=== PATIENT | male | born 1950 | race Caucasian/White ===

== ENCOUNTER 2018-09-26 06:06 | Emergency (ER) | payer MEDICARE, OTHER ==
[~2018-09-26] VITALS: Ht 180.3 cm; Wt 86.7 kg
[2018-09-26] MEDS ORDERED: LORazepam 2 mg/ml vial IV ONE (06:20)
[2018-09-26] MEDS ORDERED: normal saline 1000ml 1,000 ML IV ONE (06:20)
[2018-09-26] MEDS ORDERED: magnesium 2GM in 50ml NS 50 ML IV ONE (06:20)
== END 2018-09-26 06:20 | disposition left against medical advice (07) ==
LOC: ER 06:06
DX: R06.02 Shortness of breath (principal); Z53.21 Procedure and treatment not carried out due to patient leaving prior to being seen by health care provider
CPT/HCPCS: 93005

== ENCOUNTER 2018-10-31 09:53 | Inpatient (IN) | payer MEDICARE, OTHER | END 2018-11-04 15:25 | disposition home or self-care (01) | LOC: ER 09:53 → ED HOLD 13:02 → MED 3N 16:20 | DX: I50.23 Acute on chronic systolic (congestive) heart failure (principal); J96.00 Acute respiratory failure, unspecified whether with hypoxia or hypercapnia; I21.A1 Myocardial infarction type 2; J98.11 Atelectasis; R18.8 Other ascites ==

== ENCOUNTER 2019-06-04 08:45 | Inpatient (IN) | payer MEDICARE, OTHER ==
[~2019-06-04] VITALS: Ht 180.3 cm; Wt 89.1 kg
[~2019-06-04 08:45] MED LIST: ASPI-1265 PO; ATOR10TA PO; CARV-50 PO; DIGO125T5 PO; FOLI1TAB16 PO; FURO-150 PO; LISI10TA4 PO; MULT-1179 PO; SPIR50TA5 PO; thiamine tablet PO
[2019-06-04 09:45] LABS: BASOPHILS % (AUTO) 0.4 % (0-1); EOSINOPHILS # (AUTO) 0.1 X10'3 (0-0.9); EOSINOPHILS % (AUTO) 1.3 % (0-6); HEMATOCRIT 41.7 % (42.0-52.0); HEMOGLOBIN 13.7 g/dl (14.0-17.9); LYMPHOCYTES # (AUTO) 1.9 X10'3 (1.1-4.8); LYMPHOCYTES % (AUTO) 19.1 % (21-51); MEAN CORPUSCULAR HEMOGLOBIN 29.9 PG (27.0-31.0); MEAN CORPUSCULAR VOLUME 90.6 FL (78-98); MEAN PLATELET VOLUME 8.5 FL (7.4-10.4); MONOCYTES # (AUTO) 0.9 X10'3 (0-0.9); MONOCYTES % (AUTO) 8.9 % (2-12); NEUTROPHILS # (AUTO) 6.9 X10'3 (1.8-7.7); NEUTROPHILS % (AUTO) 70.3 % (42-75); PLATELET COUNT 178 X10'3 (140-440); RED CELL DISTRIBUTION WIDTH 14.4 % (11.5-14.5); WHITE BLOOD COUNT 9.9 X10'3 (4.5-11.0)
[2019-06-04 09:51] LABS: PARTIAL THROMBOPLASTIN TIME 27 SECONDS (22-32)
[2019-06-04 09:53] LABS: ALANINE AMINOTRANSFERASE 41 U/L (12-78); ALBUMIN 3.1 G/DL (3.4-5.0); ALBUMIN/GLOBULIN RATIO 0.8 (1.1-1.5); ALKALINE PHOSPHATASE 67 IU/L (46-116); ANION GAP 7 (8-16); ASPARTATE AMINO TRANSFERASE 25 U/L (10-37); BILIRUBIN,TOTAL 0.5 MG/DL (0.1-1.0); BLOOD UREA NITROGEN 17 MG/DL (7-18); BUN/CREATININE RATIO 16.3 (5.4-32.0); CALCIUM 8.8 MG/DL (8.5-10.1); CHLORIDE 105 MMOL/L (99-107); CREATININE 1.04 MG/DL (0.60-1.10); GLUCOSE 115 MG/DL (70-104); POTASSIUM 4.4 MMOL/L (3.5-5.1); SODIUM 141 MMOL/L (135-145); TOTAL CARBON DIOXIDE 29.5 MMOL/L (24-32); eGFR 71 ML/MIN
[2019-06-04] MEDS ORDERED: normal saline 1000ML IV soln IVB ONE (10:00)
[2019-06-04] MEDS ORDERED: aspirin 325mg tablet PO ONE (10:30)
--- NOTE | 2019-06-04 10:30 | NUR ---
POISON CONTROL CONTACTED REGARDING REPORT FROM PT THAT HE HAD TAKEN SPEED 5DAYS AGO ("1 LINE"), OTC MALE ENHANCEMENT MEDICATION CALL RHINO TAKEN 3 DAYS AGO AND NITRO 0.4MG SUBLINGUAL TAKEN THIS AM AT APPROX 8AM. RECEIVED RECOMMENDATIONS FOR CARDIAC WORKUP AND CARDIAC CONSULTATION. RECEIVED REPORT MEDICATION RHINO LIKELY METABOLIZED AND NOT LIKELY TO HAVE ADVERSE REACTION WITH NITRO TAKEN THIS AM.
--- NOTE | 2019-06-04 10:31 | NUR ---
UPDATED PROVIDER RONDA COPE ON POISON CONTROL ADVISEMENT.
--- NOTE | 2019-06-04 10:35 | NUR ---
DISCUSSED PT STATUS WITH KAVON COPE, RECEIVED VERBAL ORDER TO RUN REMAINING 500ML BOLUS AT 100ML/HOUR, ALSO RECIEVED VERBAL ORDER FOR 1 MG IV ATIVAN ONCE NOW.
[2019-06-04] MEDS ORDERED: LORazepam 2 mg/ml vial IV ONE (10:40)
--- NOTE | 2019-06-04 10:49 | NUR ---
MEDICATED PT WITH ATIVAN AND ASPIRIN PER ORDERS, PT HAS RECEIVED 500ML NS BOLUS BUT STOPPED 100ML/HR PER DISCUSSION WITH KAVON COPE.
--- NOTE | 2019-06-04 11:06 | NUR ---
PT UNSURE OF MEDICATION HE TAKES, STARTED MED REC, BUT FAXED REQUEST FOR MED LIST FROM ABBIE Salinas# [phone]
[2019-06-04] MEDS ORDERED: FLO0.4C PO (11:33)
[2019-06-04] MEDS ORDERED: NO HOME MEDS (11:40)
--- NOTE | 2019-06-04 11:40 | NUR ---
CALLED [facility] KAVON AND PT FILLED FLOMAX 04/18/19, AND XANAX 01/2019 CALLED [facility] AND PT HAS NOT FILLED SINCE 12/09/18 ALL OTHER BP AND CARDIAC MEDS LISTED IN PT HX FROM ADMISSION IN OCT, UPDATED AND DISCONTINUED MEDS IN HX PT HAS NOT TAKEN.
[2019-06-04] MEDS ORDERED: normal saline 1000ml 1,000 ML IV SCH (11:54)
[2019-06-04] MEDS ORDERED: ondansetron/PF 4mg/2ml inj IV PRN (11:55)
[2019-06-04] MEDS ORDERED: magnesium hydroxide 30ml (MOM) UD suspension PO PRN (11:55)
[2019-06-04] MEDS ORDERED: acetaminophen 325mg tablet PO PRN (11:55)
[2019-06-04] MEDS ORDERED: mag hydrox/Alum hydrox/simeth 30ml oral suspension PO PRN (11:55)
[2019-06-04 12:06] LABS: URINE AMPHETAMINE SCREEN POSITIVE (Neg); URINE BARBITUATE SCREEN NEGATIVE (Neg); URINE BENZODIAZEPINES SCREEN POSITIVE (Neg); URINE CANNABINOID SCREEN NEGATIVE (Neg); URINE COCAINE SCREEN NEGATIVE (Neg); URINE METHADONE SCREEN NEGATIVE (Neg); URINE OPIATE SCREEN NEGATIVE (Neg); URINE PHENCYCLIDINE SCREEN NEGATIVE (Neg)
--- NOTE | 2019-06-04 13:40 | NUR ---
Patient in room PCU 3024. I have received report from Libby ABAD and had the opportunity to ask questions and assume patient care.
[2019-06-04 13:50] VITALS: BP 127/92
--- NOTE | 2019-06-04 13:50 | NUR ---
Received pt on unit. Patient with tachypnea and tachycardia. Visibly working to breathe. O2 sat on RA 96%. Tele box applied to patient. Vital signs obtained. Patient is alert and oriented x4. Instructed on slow deep breathing and sitting upright in bed.
--- NOTE | 2019-06-04 14:11 | NUR ---
Page to DR Araujo re: Room 3024B Eben Dolan, on unit from ED HR 145 A-flutter with BBB and PVC, need clarification per ED RN if you really want NS at 70, Please advise Sandee or Alysia [phone]
[2019-06-04] MEDS ORDERED: digoxin 250mcg/ml 2ml ampule IV ONE ×2 (15:05→21:30)
[2019-06-04] MEDS ORDERED: DOXYCYCLINE 100MG CAPSULE PO STA (17:51)
--- NOTE | 2019-06-04 18:00 | NUR ---
Problems reprioritized. Patient report given, questions answered & plan of care reviewed with Yesenia ABAD.
[2019-06-04 19:00] VITALS: BP 135/92
[2019-06-04] MEDS: methylPREDNISolone sod succ 125mg/2ml vial IV SCH (19:41)
[2019-06-04] MEDS: heparin, porcine 5000 units/ml vial SQ SCH (19:41)
[2019-06-04] MEDS ORDERED: metoprolol tartrate 12.5mg (1/2 tablet) PO SCH (20:00)
[2019-06-04] MEDS: levalbuterol 0.63mg/3ml nebule IH SCH (20:02)
[2019-06-04] MEDS: LORazepam 2 mg/ml vial IV PRN (21:05)
[2019-06-04 23:00] VITALS: BP 142/98
[2019-06-05] MEDS: methylPREDNISolone sod succ 125mg/2ml vial IV SCH ×4 (02:00→20:32)
[2019-06-05] MEDS: levalbuterol 0.63mg/3ml nebule IH SCH ×4 (02:09→21:36)
[2019-06-05 03:00] VITALS: BP 143/92
[2019-06-05 06:00] VITALS: BP 141/103
--- NOTE | 2019-06-05 06:00 | NUR ---
Patient in room PCU 3024. I have received report from Yesenia ABAD and had the opportunity to ask questions and assume patient care.
[2019-06-05 06:23] LABS: BASOPHILS # (AUTO) 0.1 X10'3 (0-0.2); BASOPHILS % (AUTO) 0.4 % (0-1); EOSINOPHILS % (AUTO) 0.3 % (0-6); HEMOGLOBIN 14.1 g/dl (14.0-17.9); LYMPHOCYTES # (AUTO) 2.3 X10'3 (1.1-4.8); LYMPHOCYTES % (AUTO) 19.6 % (21-51); MEAN CORPUSCULAR HEMOGLOBIN 29.9 PG (27.0-31.0); MEAN CORPUSCULAR HGB CONC 33.6 g/dL (33.0-36.5); MEAN PLATELET VOLUME 9.3 FL (7.4-10.4); MONOCYTES # (AUTO) 1.2 X10'3 (0-0.9); MONOCYTES % (AUTO) 9.9 % (2-12); NEUTROPHILS # (AUTO) 8.1 X10'3 (1.8-7.7); NEUTROPHILS % (AUTO) 69.8 % (42-75); PLATELET COUNT 192 X10'3 (140-440); RED BLOOD COUNT 4.72 X10'6 (4.70-6.10); RED CELL DISTRIBUTION WIDTH 14.4 % (11.5-14.5); WHITE BLOOD COUNT 11.7 X10'3 (4.5-11.0)
[2019-06-05 07:17] LABS: ALBUMIN 3.2 G/DL (3.4-5.0); ANION GAP 11 (8-16); BLOOD UREA NITROGEN 14 MG/DL (7-18); BUN/CREATININE RATIO 14.7 (5.4-32.0); CALCIUM 9.4 MG/DL (8.5-10.1); CHLORIDE 104 MMOL/L (99-107); CREATININE 0.95 MG/DL (0.60-1.10); GLUCOSE 104 MG/DL (70-104); POTASSIUM 4.3 MMOL/L (3.5-5.1); SODIUM 138 MMOL/L (135-145); eGFR 79 ML/MIN
[2019-06-05] MEDS: aspirin 81mg tablet.DR PO SCH (07:44)
[2019-06-05] MEDS: atorvastatin 20mg tablet PO SCH (07:45)
[2019-06-05] MEDS: DOXYCYCLINE 100MG CAPSULE PO SCH ×2 (07:45→17:44)
[2019-06-05] MEDS: heparin, porcine 5000 units/ml vial SQ SCH (07:46)
--- NOTE | 2019-06-05 07:50 | NUR ---
0200 solumedrol dose still active on EMAR, unknown if patient received. Per pharmacy I am to non-admin and make a note. 0200 solumedrol IV "Non-administered"
[2019-06-05] MEDS: carvedilol 6.25mg tablet PO SCH ×2 (07:57→20:32)
[2019-06-05] MEDS ORDERED: digoxin 250mcg (0.25mg) tablet PO ONE (09:00)
[2019-06-05 11:00] VITALS: BP 137/81
[2019-06-05] MEDS ORDERED: furosemide 40mg/4ml inj IV ONE (11:55)
[2019-06-05 15:00] VITALS: BP 113/77
--- NOTE | 2019-06-05 18:00 | NUR ---
Problems reprioritized. Patient report given, questions answered & plan of care reviewed with Yesenia ABAD.
[2019-06-05 19:00] VITALS: BP 120/76
[2019-06-05] MEDS ORDERED: enoxaparin 100mg/ml syringe SUBCUT SCH (20:00)
[2019-06-05] MEDS: lactobacillus rhamnosus 10,000 MMU CELLS/CAPSULE PO SCH (20:32)
[2019-06-05] MEDS: enoxaparin 30mg/0.3ml syringe SUBCUT SCH (20:32)
[2019-06-05] MEDS: tamsulosin 0.4mg capsule PO SCH (20:32)
[2019-06-05] MEDS: enoxaparin 60mg/0.6ml syringe SUBCUT SCH (20:33)
[2019-06-05 23:00] VITALS: BP 114/61
[2019-06-06] MEDS: methylPREDNISolone sod succ 125mg/2ml vial IV SCH ×4 (02:02→19:12)
[2019-06-06 03:00] VITALS: BP 119/72
[2019-06-06] MEDS: levalbuterol 0.63mg/3ml nebule IH SCH ×4 (03:00→20:57)
[2019-06-06 06:04] LABS: BASOPHILS # (AUTO) 0.1 X10'3 (0-0.2); BASOPHILS % (AUTO) 0.3 % (0-1); EOSINOPHILS % (AUTO) 0 % (0-6); HEMATOCRIT 45.7 % (42.0-52.0); HEMOGLOBIN 15.1 g/dl (14.0-17.9); LYMPHOCYTES # (AUTO) 1.3 X10'3 (1.1-4.8); LYMPHOCYTES % (AUTO) 6.5 % (21-51); MEAN CORPUSCULAR HEMOGLOBIN 29.8 PG (27.0-31.0); MEAN CORPUSCULAR VOLUME 90.3 FL (78-98); MEAN PLATELET VOLUME 9.1 FL (7.4-10.4); MONOCYTES # (AUTO) 0.4 X10'3 (0-0.9); MONOCYTES % (AUTO) 1.9 % (2-12); NEUTROPHILS % (AUTO) 91.3 % (42-75); PLATELET COUNT 202 X10'3 (140-440); RED BLOOD COUNT 5.06 X10'6 (4.70-6.10); RED CELL DISTRIBUTION WIDTH 14.4 % (11.5-14.5); WHITE BLOOD COUNT 19.7 X10'3 (4.5-11.0)
[2019-06-06 06:12] LABS: ANION GAP 7 (8-16); BLOOD UREA NITROGEN 22 MG/DL (7-18); CALCIUM 9.4 MG/DL (8.5-10.1); CHLORIDE 105 MMOL/L (99-107); GLUCOSE 210 MG/DL (70-104); POTASSIUM 3.8 MMOL/L (3.5-5.1); SODIUM 140 MMOL/L (135-145); TOTAL CARBON DIOXIDE 27.6 MMOL/L (24-32); eGFR 67 ML/MIN
--- NOTE | 2019-06-06 06:36 | NUR ---
Patient in room PCU 3024. I have received report from Yesenia ABAD and had the opportunity to ask questions and assume patient care. Patient asleep in bed. All immediate needs met.
[2019-06-06 07:00] VITALS: BP_SYST 101; BP_SYST 109; BP_DIAS 61; BP_DIAS 70
[2019-06-06] MEDS: DOXYCYCLINE 100MG CAPSULE PO SCH ×2 (07:40→17:06)
[2019-06-06] MEDS: atorvastatin 20mg tablet PO SCH (07:40)
[2019-06-06] MEDS: digoxin 250mcg (0.25mg) tablet PO SCH (07:41)
[2019-06-06] MEDS: carvedilol 6.25mg tablet PO SCH ×2 (07:41→19:11)
[2019-06-06] MEDS: lactobacillus rhamnosus 10,000 MMU CELLS/CAPSULE PO SCH ×2 (07:41→19:10)
[2019-06-06] MEDS: aspirin 81mg tablet.DR PO SCH (07:41)
[2019-06-06] MEDS: enoxaparin 30mg/0.3ml syringe SUBCUT SCH ×2 (07:42→19:13)
[2019-06-06] MEDS: furosemide 40mg/4ml inj IV SCH (07:42)
[2019-06-06] MEDS: enoxaparin 60mg/0.6ml syringe SUBCUT SCH ×2 (07:43→19:12)
[2019-06-06 11:00] VITALS: BP 101/61
[2019-06-06 15:00] VITALS: BP 127/74
--- NOTE | 2019-06-06 17:51 | NUR ---
Paged Dr. Araujo: PAGER ID: [phone] MESSAGE: RE: Eben Dolan [id number]. FYI - patient HR in the 130-140's for last 30 minutes. [facility] [phone]
--- NOTE | 2019-06-06 18:00 | NUR ---
Patient in room PCU 3024. I have received report from Mohini ABAD and had the opportunity to ask questions and assume patient care.
--- NOTE | 2019-06-06 18:13 | NUR ---
Problems reprioritized. Patient report given, questions answered & plan of care reviewed with Kandice ABAD. Patient stable at transfer of care.
[2019-06-06 19:00] VITALS: BP 127/74
[2019-06-06] MEDS: tamsulosin 0.4mg capsule PO SCH (20:15)
[2019-06-06 23:00] VITALS: BP 103/69
[2019-06-06] MEDS: LORazepam 2 mg/ml vial IV PRN (23:57)
[2019-06-07] MEDS: methylPREDNISolone sod succ 125mg/2ml vial IV SCH ×3 (01:07→19:11)
[2019-06-07 02:00] VITALS: BP 124/88
[2019-06-07] MEDS: levalbuterol 0.63mg/3ml nebule IH SCH ×4 (03:00→20:37)
[2019-06-07 05:14] LABS: BASOPHILS # (AUTO) 0.1 X10'3 (0-0.2); BASOPHILS % (AUTO) 0.3 % (0-1); EOSINOPHILS % (AUTO) 0 % (0-6); HEMATOCRIT 46.4 % (42.0-52.0); HEMOGLOBIN 14.9 g/dl (14.0-17.9); LYMPHOCYTES # (AUTO) 1.6 X10'3 (1.1-4.8); LYMPHOCYTES % (AUTO) 5.4 % (21-51); MEAN CORPUSCULAR HEMOGLOBIN 29.1 PG (27.0-31.0); MEAN CORPUSCULAR HGB CONC 32.2 g/dL (33.0-36.5); MEAN CORPUSCULAR VOLUME 90.4 FL (78-98); MEAN PLATELET VOLUME 9.9 FL (7.4-10.4); MONOCYTES # (AUTO) 0.6 X10'3 (0-0.9); NEUTROPHILS # (AUTO) 26.6 X10'3 (1.8-7.7); NEUTROPHILS % (AUTO) 92.3 % (42-75); PLATELET COUNT 229 X10'3 (140-440); RED BLOOD COUNT 5.13 X10'6 (4.70-6.10); RED CELL DISTRIBUTION WIDTH 14.5 % (11.5-14.5)
[2019-06-07 05:26] LABS: ALBUMIN 2.9 G/DL (3.4-5.0); ANION GAP 8 (8-16); BLOOD UREA NITROGEN 29 MG/DL (7-18); BUN/CREATININE RATIO 24.8 (5.4-32.0); CALCIUM 8.8 MG/DL (8.5-10.1); CHLORIDE 105 MMOL/L (99-107); CREATININE 1.17 MG/DL (0.60-1.10); GLUCOSE 134 MG/DL (70-104); POTASSIUM 4.1 MMOL/L (3.5-5.1); SODIUM 141 MMOL/L (135-145); TOTAL CARBON DIOXIDE 28.4 MMOL/L (24-32); eGFR 62 ML/MIN
[2019-06-07 05:35] LABS: WHITE BLOOD COUNT 28.8 X10'3 (4.5-11.0)
--- NOTE | 2019-06-07 05:36 | NUR ---
PAGER ID: [phone] MESSAGE: [id number] Eben Dolan: Critical lab value, WBC 28.8 what would you like to do? Kandice ABAD [phone]
--- NOTE | 2019-06-07 05:40 | NUR ---
WBC Critical WBC is now 28.8, MD Renee has been paged, will continue to monitor.
--- NOTE | 2019-06-07 06:00 | NUR ---
Problems reprioritized. Patient report given, questions answered & plan of care reviewed with Joe ABAD.
--- NOTE | 2019-06-07 06:28 | NUR ---
Call back MD Renee called back about the critical wbc value of 28.8. He stated to take a temperature and call the day time provider. Will pass on the message to day shift.
--- NOTE | 2019-06-07 06:30 | NUR ---
Patient in room PCU 3024. I have received report from Kandice ABAD and had the opportunity to ask questions and assume patient care.
--- NOTE | 2019-06-07 06:30 | NUR ---
Patient in room PCU 3024a. I have received report from JENNIFFER Morales and had the opportunity to ask questions and assume patient care.
[2019-06-07 06:55] LABS: TOTAL CELLS COUNTED 100
[2019-06-07 06:56] LABS: PLATELET ESTIMATE NORMAL; POLYCHROMASIA FEW
[2019-06-07 06:57] LABS: HYPOCHROMASIA 1+
[2019-06-07 07:00] VITALS: BP 147/92
[2019-06-07] MEDS: furosemide 40mg/4ml inj IV SCH (08:10)
[2019-06-07] MEDS: carvedilol 6.25mg tablet PO SCH ×2 (08:11→19:13)
[2019-06-07] MEDS: DOXYCYCLINE 100MG CAPSULE PO SCH ×2 (08:11→17:10)
[2019-06-07] MEDS: digoxin 250mcg (0.25mg) tablet PO SCH (08:11)
[2019-06-07] MEDS: lactobacillus rhamnosus 10,000 MMU CELLS/CAPSULE PO SCH ×2 (08:11→19:13)
[2019-06-07] MEDS: aspirin 81mg tablet.DR PO SCH (08:11)
[2019-06-07] MEDS: atorvastatin 20mg tablet PO SCH (08:11)
[2019-06-07] MEDS: enoxaparin 30mg/0.3ml syringe SUBCUT SCH ×2 (08:12→19:12)
[2019-06-07] MEDS: enoxaparin 60mg/0.6ml syringe SUBCUT SCH ×2 (08:12→19:12)
[2019-06-07] MEDS: LORazepam 2 mg/ml vial IV PRN ×2 (08:40→22:39)
[2019-06-07 11:00] VITALS: BP 90/49
[2019-06-07 15:00] VITALS: BP 125/69
--- NOTE | 2019-06-07 18:00 | NUR ---
Patient in room PCU 3024. I have received report from Joe ABAD and had the opportunity to ask questions and assume patient care.
--- NOTE | 2019-06-07 18:06 | NUR ---
I agree with all of Rosaura ABAD ([place]) Charting
--- NOTE | 2019-06-07 18:23 | NUR ---
Problems reprioritized. Patient report given, questions answered & plan of care reviewed with Kandice ABAD.
--- NOTE | 2019-06-07 18:23 | NUR ---
Problems reprioritized. Patient report given, questions answered & plan of care reviewed with JENNIFFER Morales.
[2019-06-07 19:00] VITALS: BP 128/69
[2019-06-07] MEDS: tamsulosin 0.4mg capsule PO SCH (20:23)
[2019-06-07] MEDS ORDERED: levalbuterol 0.63mg/3ml nebule IH PRN (21:50)
[2019-06-07 23:00] VITALS: BP 125/72
[2019-06-08 03:00] VITALS: BP 120/82
[2019-06-08 05:25] LABS: BASOPHILS # (AUTO) 0.1 X10'3 (0-0.2); BASOPHILS % (AUTO) 0.2 % (0-1); EOSINOPHILS % (AUTO) 0 % (0-6); HEMATOCRIT 46.5 % (42.0-52.0); HEMOGLOBIN 15.4 g/dl (14.0-17.9); LYMPHOCYTES # (AUTO) 1.5 X10'3 (1.1-4.8); LYMPHOCYTES % (AUTO) 6.3 % (21-51); MEAN CORPUSCULAR HEMOGLOBIN 29.5 PG (27.0-31.0); MEAN CORPUSCULAR HGB CONC 33.1 g/dL (33.0-36.5); MEAN CORPUSCULAR VOLUME 89.1 FL (78-98); MEAN PLATELET VOLUME 9.1 FL (7.4-10.4); MONOCYTES # (AUTO) 0.8 X10'3 (0-0.9); MONOCYTES % (AUTO) 3.3 % (2-12); NEUTROPHILS # (AUTO) 21.4 X10'3 (1.8-7.7); NEUTROPHILS % (AUTO) 90.2 % (42-75); PLATELET COUNT 237 X10'3 (140-440); RED BLOOD COUNT 5.22 X10'6 (4.70-6.10); RED CELL DISTRIBUTION WIDTH 14.4 % (11.5-14.5); WHITE BLOOD COUNT 23.7 X10'3 (4.5-11.0)
[2019-06-08 05:31] LABS: ALBUMIN 2.7 G/DL (3.4-5.0); ANION GAP 5 (8-16); BLOOD UREA NITROGEN 30 MG/DL (7-18); CALCIUM 8.4 MG/DL (8.5-10.1); CHLORIDE 105 MMOL/L (99-107); GLUCOSE 120 MG/DL (70-104); SODIUM 140 MMOL/L (135-145); TOTAL CARBON DIOXIDE 30.3 MMOL/L (24-32); eGFR 74 ML/MIN
[2019-06-08 06:00] VITALS: BP 131/96
--- NOTE | 2019-06-08 06:25 | NUR ---
Patient in room PCU 3024. I have received report from reanna ABAD and had the opportunity to ask questions and assume patient care.
--- NOTE | 2019-06-08 06:27 | NUR ---
Problems reprioritized. Patient report given, questions answered & plan of care reviewed with Joe ABAD.
--- NOTE | 2019-06-08 06:30 | NUR ---
Patient in room PCU 3024a. I have received report from JENNIFFER Morales and had the opportunity to ask questions and assume patient care.
[2019-06-08] MEDS: methylPREDNISolone sod succ 125mg/2ml vial IV SCH (07:58)
[2019-06-08] MEDS: enoxaparin 30mg/0.3ml syringe SUBCUT SCH (07:59)
[2019-06-08] MEDS: enoxaparin 60mg/0.6ml syringe SUBCUT SCH (07:59)
[2019-06-08] MEDS: carvedilol 6.25mg tablet PO SCH (08:00)
[2019-06-08] MEDS: lactobacillus rhamnosus 10,000 MMU CELLS/CAPSULE PO SCH (08:00)
[2019-06-08] MEDS: furosemide 40mg/4ml inj IV SCH (08:00)
[2019-06-08] MEDS: digoxin 250mcg (0.25mg) tablet PO SCH (08:00)
[2019-06-08] MEDS: atorvastatin 20mg tablet PO SCH (08:00)
[2019-06-08] MEDS: DOXYCYCLINE 100MG CAPSULE PO SCH (08:00)
[2019-06-08] MEDS: aspirin 81mg tablet.DR PO SCH (08:00)
[2019-06-08] MEDS: LORazepam 2 mg/ml vial IV PRN (08:31)
[2019-06-08 11:00] VITALS: BP 129/74
--- NOTE | 2019-06-08 12:18 | NUR ---
Patient in room PCU 3024. I have received report from Joe ABAD and Rosaura Benavides RN and had the opportunity to ask questions and assume patient care.
--- NOTE | 2019-06-08 12:23 | NUR ---
Problems reprioritized. Patient report given, questions answered & plan of care reviewed with Thaddeus RN.
--- NOTE | 2019-06-08 13:30 | NUR ---
NOTIFIED PAGER ID: [phone] MESSAGE: [id number], Eben Dolan- pt ambulated around unit with no assistance and HR in the 90s range. pt wants to know when he can go home. Thaddeus RN PCU
[2019-06-08] MEDS ORDERED: LISI-600 PO (13:50)
[2019-06-08] MEDS ORDERED: ASPI-1071 PO (13:50)
[2019-06-08] MEDS ORDERED: FURO40TA4 PO (13:50)
[2019-06-08] MEDS ORDERED: RIVA20TA PO (13:50)
[2019-06-08] MEDS ORDERED: PRED20TA PO (13:50)
[2019-06-08] MEDS ORDERED: LAN0.25T PO (13:50)
[2019-06-08] MEDS ORDERED: CARV6.253 PO (13:50)
[2019-06-08] MEDS ORDERED: ATOR20TA66 PO (13:50)
[2019-06-08] MEDS ORDERED: DOXY-224 PO (13:50)
[2019-06-08] MEDS ORDERED: tamsulosin capsule PO (13:50)
[2019-06-08] MEDS ORDERED: rivaroxaban 20mg tablet PO ONE (15:20)
[2019-06-08] MEDS ORDERED: DOXYCYCLINE 100MG CAPSULE PO ONE (15:20)
--- NOTE | 2019-06-08 16:20 | NUR ---
pt discharger, tele removed, IV removed, pt's son came to pick him up, pt educated on discharge plan and all medications and follow up apointment, walked out with son who drove him home.
[2019-06-08] MEDS ORDERED: carvedilol 6.25mg tablet PO ONE (17:00)
[2019-06-08] MEDS ORDERED: predniSONE 20 mg tablet PO ONE (17:00)
== END 2019-06-08 18:17 | disposition home or self-care (01) | DRG 917 ==
LOC: ER 08:46 → PCU 3S 14:01
PROVIDERS: ADMIT Family Medicine; ATTEND Family Medicine
DX: T46.7X1A Poisoning by peripheral vasodilators, accidental (unintentional), initial encounter (principal); I50.23 Acute on chronic systolic (congestive) heart failure; I48.92 Unspecified atrial flutter; J44.1 Chronic obstructive pulmonary disease with (acute) exacerbation; I42.7 Cardiomyopathy due to drug and external agent; F15.20 Other stimulant dependence, uncomplicated; F15.10 Other stimulant abuse, uncomplicated; R00.0 Tachycardia, unspecified; F41.9 Anxiety disorder, unspecified; F17.210 Nicotine dependence, cigarettes, uncomplicated; I11.0 Hypertensive heart disease with heart failure; I25.10 Atherosclerotic heart disease of native coronary artery without angina pectoris; N40.0 Benign prostatic hyperplasia without lower urinary tract symptoms; Z82.49 Family history of ischemic heart disease and other diseases of the circulatory system; Z91.14 Patient's other noncompliance with medication regimen; Z91.19 Patient's noncompliance with other medical treatment and regimen; Z95.5 Presence of coronary angioplasty implant and graft; Z87.01 Personal history of pneumonia (recurrent); Z71.51 Drug abuse counseling and surveillance of drug abuser; Z79.899 Other long term (current) drug therapy; Z79.82 Long term (current) use of aspirin; Z71.6 Tobacco abuse counseling
CPT/HCPCS: 36415; 71045; 80048; 80053; 80305; 84484; 85025; 85610; 85730; 87081; 93005; 94640; 94760; 96374; 99285; G0378; J1160; J1644; J1650; J1940; J2060; J2930; J7030; J7512; J7614

== ENCOUNTER 2019-06-30 18:33 | Inpatient (IN) | payer MEDICARE, OTHER ==
[~2019-06-30] VITALS: Ht 180.3 cm; Wt 86.4 kg
[~2019-06-30 18:33] MED LIST changes: +ASPI-1071 PO; -ASPI-1265 PO; -ATOR10TA PO; +ATOR20TA66 PO; -CARV-50 PO; +CARV6.253 PO; -DIGO125T5 PO; +DOXY-224 PO; -FOLI1TAB16 PO; -FURO-150 PO; +FURO40TA4 PO; +LAN0.25T PO; +LISI-600 PO; -LISI10TA4 PO; -MULT-1179 PO; +PRED20TA PO; +RIVA20TA PO; -SPIR50TA5 PO; +tamsulosin capsule PO; -thiamine tablet PO
--- NOTE | 2019-06-30 18:43 | NUR ---
Will PCT placed inroom and on 3L O2
[2019-06-30 19:03] LABS: BASOPHILS # (AUTO) 0.1 X10'3 (0-0.2); BASOPHILS % (AUTO) 0.7 % (0-1); EOSINOPHILS # (AUTO) 0.3 X10'3 (0-0.9); EOSINOPHILS % (AUTO) 4.1 % (0-6); HEMATOCRIT 45.9 % (42.0-52.0); HEMOGLOBIN 15.1 g/dl (14.0-17.9); LYMPHOCYTES # (AUTO) 1.8 X10'3 (1.1-4.8); LYMPHOCYTES % (AUTO) 22.9 % (21-51); MEAN CORPUSCULAR VOLUME 90.9 FL (78-98); MONOCYTES # (AUTO) 0.8 X10'3 (0-0.9); MONOCYTES % (AUTO) 10.3 % (2-12); NEUTROPHILS # (AUTO) 4.8 X10'3 (1.8-7.7); PLATELET COUNT 179 X10'3 (140-440); RED BLOOD COUNT 5.05 X10'6 (4.70-6.10); RED CELL DISTRIBUTION WIDTH 14.9 % (11.5-14.5); WHITE BLOOD COUNT 7.7 X10'3 (4.5-11.0)
[2019-06-30 19:17] LABS: PARTIAL THROMBOPLASTIN TIME 26 SECONDS (22-32)
[2019-06-30 19:21] LABS: ALANINE AMINOTRANSFERASE 124 U/L (12-78); ALBUMIN 3.4 G/DL (3.4-5.0); ALBUMIN/GLOBULIN RATIO 0.9 (1.1-1.5); ALKALINE PHOSPHATASE 84 IU/L (46-116); ANION GAP 7 (8-16); ASPARTATE AMINO TRANSFERASE 83 U/L (10-37); BILIRUBIN,TOTAL 0.4 MG/DL (0.1-1.0); BLOOD UREA NITROGEN 10 MG/DL (7-18); BUN/CREATININE RATIO 10.1 (5.4-32.0); CALCIUM 9.4 MG/DL (8.5-10.1); CHLORIDE 104 MMOL/L (99-107); CREATININE 0.99 MG/DL (0.60-1.10); GLUCOSE 102 MG/DL (70-104); POTASSIUM 4.5 MMOL/L (3.5-5.1); SODIUM 141 MMOL/L (135-145); TOTAL CARBON DIOXIDE 29.7 MMOL/L (24-32); TOTAL PROTEIN 7.4 G/DL (6.4-8.2); eGFR 75 ML/MIN
[2019-06-30] MEDS ORDERED: ipratropium/albuterol 3ml nebule NEB ONE (19:25)
[2019-06-30] MEDS ORDERED: albuterol 2.5 MG/3 ML nebule NEB ONE (19:25)
[2019-06-30] MEDS ORDERED: methylPREDNISolone sod succ 125mg/2ml vial IV ONE (19:25)
--- NOTE | 2019-06-30 19:56 | NUR ---
PATIENT FEELS BETER AFTER NEBS
--- NOTE | 2019-06-30 20:00 | NUR ---
LAST IV METH 3 DAYS AGO USING FOR 4 YEARS
--- NOTE | 2019-06-30 20:00 | NUR ---
KIM PREVIOUS VISIT: EF 10% WITH CARDIOMYOPATHY AND PE
--- NOTE | 2019-06-30 20:00 | NUR ---
DR HANEY INFOMRED THAT PATIENT'S HISTORY FROM HIS LAST VISIT INCLUDED A PE, HF WITH AN EXTREMELY LOW EF
[2019-06-30] MEDS ORDERED: nitroGLYCERIN 1gm ointment UD TP ONE (20:10)
[2019-06-30] MEDS ORDERED: furosemide 10 MG/1 ML 10ml inj IV ONE (20:10)
[2019-06-30] MEDS ORDERED: temazepam 15mg capsule PO PRN (21:00)
[2019-06-30] MEDS ORDERED: FLO0.4C PO (21:27)
[2019-06-30] MEDS ORDERED: magnesium hydroxide 30ml (MOM) UD suspension PO PRN (21:35)
[2019-06-30] MEDS ORDERED: mag hydrox/Alum hydrox/simeth 30ml oral suspension PO PRN (21:35)
[2019-06-30] MEDS ORDERED: ondansetron/PF 4mg/2ml inj IV PRN (21:35)
[2019-06-30] MEDS ORDERED: acetaminophen 325mg tablet PO PRN (21:35)
--- NOTE | 2019-06-30 21:39 | NUR ---
SPOKE TO DR HANEY REGARDING PATIENT'S MILD JANSEN
[2019-06-30] MEDS ORDERED: acetaminophen 325mg tablet PO ONE (21:40)
[2019-07-01] VITALS (7 sets, daily range): BP systolic 94–118; BP diastolic 55–84
[2019-07-01 00:56] LABS: BASOPHILS % (AUTO) 0.4 % (0-1); EOSINOPHILS % (AUTO) 0.1 % (0-6); HEMATOCRIT 42.6 % (42.0-52.0); HEMOGLOBIN 14.3 g/dl (14.0-17.9); LYMPHOCYTES # (AUTO) 0.7 X10'3 (1.1-4.8); LYMPHOCYTES % (AUTO) 9.7 % (21-51); MEAN CORPUSCULAR HEMOGLOBIN 29.6 PG (27.0-31.0); MEAN CORPUSCULAR HGB CONC 33.4 g/dL (33.0-36.5); MEAN CORPUSCULAR VOLUME 88.4 FL (78-98); MEAN PLATELET VOLUME 9.4 FL (7.4-10.4); MONOCYTES # (AUTO) 0.2 X10'3 (0-0.9); MONOCYTES % (AUTO) 2.5 % (2-12); NEUTROPHILS # (AUTO) 6.3 X10'3 (1.8-7.7); NEUTROPHILS % (AUTO) 87.3 % (42-75); PLATELET COUNT 183 X10'3 (140-440); RED BLOOD COUNT 4.82 X10'6 (4.70-6.10); RED CELL DISTRIBUTION WIDTH 14.6 % (11.5-14.5); WHITE BLOOD COUNT 7.2 X10'3 (4.5-11.0)
[2019-07-01 01:08] LABS: ALANINE AMINOTRANSFERASE 110 U/L (12-78); ALBUMIN/GLOBULIN RATIO 0.8 (1.1-1.5); ALKALINE PHOSPHATASE 72 IU/L (46-116); ANION GAP 9 (8-16); ASPARTATE AMINO TRANSFERASE 68 U/L (10-37); BILIRUBIN,TOTAL 0.6 MG/DL (0.1-1.0); BLOOD UREA NITROGEN 15 MG/DL (7-18); BUN/CREATININE RATIO 12.2 (5.4-32.0); CHLORIDE 102 MMOL/L (99-107); CREATININE 1.23 MG/DL (0.60-1.10); GLUCOSE 201 MG/DL (70-104); POTASSIUM 4.1 MMOL/L (3.5-5.1); SODIUM 138 MMOL/L (135-145); TOTAL CARBON DIOXIDE 26.6 MMOL/L (24-32); TOTAL PROTEIN 6.9 G/DL (6.4-8.2); eGFR 59 ML/MIN
--- NOTE | 2019-07-01 06:24 | NUR ---
Problems reprioritized. Patient report given, questions answered & plan of care reviewed with Charlene ABAD.
--- NOTE | 2019-07-01 06:31 | NUR ---
I have received patient report from Adrian ABAD
[2019-07-01] MEDS: furosemide 40mg/4ml inj IV SCH ×2 (08:02→20:51)
[2019-07-01] MEDS: carvedilol 6.25mg tablet PO SCH ×2 (08:02→20:52)
[2019-07-01] MEDS: aspirin 81mg tablet.DR PO SCH (08:04)
[2019-07-01] MEDS: heparin, porcine 5000 units/ml vial SQ SCH ×2 (08:04→20:51)
[2019-07-01 11:36] LABS: URINE AMPHETAMINE SCREEN POSITIVE (Neg); URINE BARBITUATE SCREEN NEGATIVE (Neg); URINE BENZODIAZEPINES SCREEN NEGATIVE (Neg); URINE CANNABINOID SCREEN NEGATIVE (Neg); URINE COCAINE SCREEN NEGATIVE (Neg); URINE METHADONE SCREEN NEGATIVE (Neg); URINE OPIATE SCREEN NEGATIVE (Neg); URINE PHENCYCLIDINE SCREEN NEGATIVE (Neg)
--- NOTE | 2019-07-01 18:30 | NUR ---
PATIENT REPORT GIVEN TO MONSERRAT ABAD
[2019-07-01] MEDS ORDERED: tamsulosin 0.4mg capsule PO SCH (21:00)
[2019-07-01] MEDS ORDERED: carvedilol 6.25mg tablet PO ONE (22:10)
[2019-07-02] MEDS ORDERED: LORazepam 1 MG tablet PO PRN (02:00)
[2019-07-02 03:00] VITALS: BP 86/61
[2019-07-02 05:43] LABS: BASOPHILS % (AUTO) 0.4 % (0-1); EOSINOPHILS % (AUTO) 0.3 % (0-6); HEMATOCRIT 46.3 % (42.0-52.0); HEMOGLOBIN 15.5 g/dl (14.0-17.9); LYMPHOCYTES # (AUTO) 2.4 X10'3 (1.1-4.8); LYMPHOCYTES % (AUTO) 20.8 % (21-51); MEAN CORPUSCULAR HEMOGLOBIN 29.9 PG (27.0-31.0); MEAN CORPUSCULAR HGB CONC 33.4 g/dL (33.0-36.5); MEAN CORPUSCULAR VOLUME 89.6 FL (78-98); MEAN PLATELET VOLUME 9.4 FL (7.4-10.4); MONOCYTES # (AUTO) 1.1 X10'3 (0-0.9); NEUTROPHILS # (AUTO) 8.2 X10'3 (1.8-7.7); NEUTROPHILS % (AUTO) 69.5 % (42-75); PLATELET COUNT 209 X10'3 (140-440); RED BLOOD COUNT 5.17 X10'6 (4.70-6.10); RED CELL DISTRIBUTION WIDTH 14.9 % (11.5-14.5); WHITE BLOOD COUNT 11.8 X10'3 (4.5-11.0)
[2019-07-02] MEDS ORDERED: benzocaine/menthol oral lozeng 1 EACH BOX MM PRN (05:55)
[2019-07-02 06:00] VITALS: BP 132/68
[2019-07-02 06:12] LABS: ALANINE AMINOTRANSFERASE 99 U/L (12-78); ALBUMIN 3.1 G/DL (3.4-5.0); ALBUMIN/GLOBULIN RATIO 0.7 (1.1-1.5); ALKALINE PHOSPHATASE 76 IU/L (46-116); ANION GAP 9 (8-16); ASPARTATE AMINO TRANSFERASE 46 U/L (10-37); BILIRUBIN,TOTAL 0.5 MG/DL (0.1-1.0); BLOOD UREA NITROGEN 23 MG/DL (7-18); BUN/CREATININE RATIO 23.7 (5.4-32.0); CALCIUM 8.9 MG/DL (8.5-10.1); CHLORIDE 103 MMOL/L (99-107); CREATININE 0.97 MG/DL (0.60-1.10); GLUCOSE 107 MG/DL (70-104); POTASSIUM 3.9 MMOL/L (3.5-5.1); SODIUM 140 MMOL/L (135-145); TOTAL CARBON DIOXIDE 28.1 MMOL/L (24-32); TOTAL PROTEIN 7.3 G/DL (6.4-8.2); eGFR 77 ML/MIN
--- NOTE | 2019-07-02 06:30 | NUR ---
Problems reprioritized. Patient report given, questions answered & plan of care reviewed with JENNIFFER Mcdermott.
--- NOTE | 2019-07-02 06:30 | NUR ---
Patient in room PCU 3014. I have received report from Charlene and had the opportunity to ask questions and assume patient care.
[2019-07-02] MEDS: carvedilol 6.25mg tablet PO SCH (08:56)
[2019-07-02] MEDS: aspirin 81mg tablet.DR PO SCH (08:56)
[2019-07-02] MEDS: furosemide 40mg/4ml inj IV SCH (08:56)
[2019-07-02] MEDS: heparin, porcine 5000 units/ml vial SQ SCH (08:57)
[2019-07-02] MEDS ORDERED: POTA20TA19 PO (10:41)
[2019-07-02] MEDS ORDERED: CARV6.253 PO (10:41)
[2019-07-02] MEDS ORDERED: FURO40TA4 PO (10:41)
--- NOTE | 2019-07-02 13:59 | NUR ---
Reviewed discharge instructions with pt, pt verbalized understanding. Pt is alert, oriented and does not complain of discomfort at this time. All of pt's belongings were returned to pt. Pt was accompanied by staff down to the lobby where pt's ride will pick him up.
== END 2019-07-02 13:05 | disposition home or self-care (01) | DRG 291 ==
LOC: ER 18:34 → ED HOLD 22:04 → PCU 3S 23:30
PROVIDERS: ADMIT Internal Medicine; ATTEND Family Medicine
DX: I11.0 Hypertensive heart disease with heart failure (principal); J96.01 Acute respiratory failure with hypoxia; I50.23 Acute on chronic systolic (congestive) heart failure; F15.10 Other stimulant abuse, uncomplicated; E78.00 Pure hypercholesterolemia, unspecified; I25.10 Atherosclerotic heart disease of native coronary artery without angina pectoris; J44.9 Chronic obstructive pulmonary disease, unspecified; Z95.5 Presence of coronary angioplasty implant and graft; Z87.891 Personal history of nicotine dependence; Z79.82 Long term (current) use of aspirin
CPT/HCPCS: 36415; 71045; 80053; 80305; 83880; 84484; 85025; 85610; 85730; 87081; 93005; 94640; 94760; 96374; 96375; 99285; G0378; J1644; J1940; J2930

== ENCOUNTER 2019-07-22 14:08 | Inpatient (IN) | payer MEDICARE, OTHER ==
[~2019-07-22] VITALS: Ht 177.8 cm; Wt 81.8 kg
[~2019-07-22 14:08] MED LIST changes: -ATOR20TA66 PO; -DOXY-224 PO; +FLO0.4C PO; -LAN0.25T PO; -LISI-600 PO; +POTA20TA19 PO; -PRED20TA PO; -RIVA20TA PO; -tamsulosin capsule PO
--- NOTE | 2019-07-22 14:23 | NUR ---
Patient arrived into room via wheelchair and was slumped over, patient need full assist to be transfer to [facility]. Dr. Preciado in room upon patient arrival to bed 5. Defib pads placed on patients chest. Per spindle frame carver patients heart rate in the 30's and inability to obtain blood pressure. Upon placing patient on monitor patients heart rate at 99 beats/min with correlating strong pulse.
[2019-07-22] MEDS ORDERED: aspirin 81mg tab.chew PO ONE (14:30)
[2019-07-22 14:43] LABS: BASOPHILS % (AUTO) 0.5 % (0-1); EOSINOPHILS # (AUTO) 0.3 X10'3 (0-0.9); EOSINOPHILS % (AUTO) 3.1 % (0-6); HEMATOCRIT 41.4 % (42.0-52.0); HEMOGLOBIN 13.7 g/dl (14.0-17.9); LYMPHOCYTES % (AUTO) 22.3 % (21-51); MEAN CORPUSCULAR HEMOGLOBIN 29.6 PG (27.0-31.0); MEAN CORPUSCULAR HGB CONC 33.2 g/dL (33.0-36.5); MEAN CORPUSCULAR VOLUME 89.1 FL (78-98); MEAN PLATELET VOLUME 9.1 FL (7.4-10.4); MONOCYTES # (AUTO) 0.7 X10'3 (0-0.9); MONOCYTES % (AUTO) 8.3 % (2-12); NEUTROPHILS # (AUTO) 5.9 X10'3 (1.8-7.7); NEUTROPHILS % (AUTO) 65.8 % (42-75); PLATELET COUNT 211 X10'3 (140-440); RED BLOOD COUNT 4.64 X10'6 (4.70-6.10); RED CELL DISTRIBUTION WIDTH 15.2 % (11.5-14.5); WHITE BLOOD COUNT 8.9 X10'3 (4.5-11.0)
[2019-07-22 15:04] LABS: ALANINE AMINOTRANSFERASE 74 U/L (12-78); ALBUMIN 3.1 G/DL (3.4-5.0); ALBUMIN/GLOBULIN RATIO 0.7 (1.1-1.5); ALKALINE PHOSPHATASE 77 IU/L (46-116); ANION GAP 6 (8-16); ASPARTATE AMINO TRANSFERASE 38 U/L (10-37); BILIRUBIN,TOTAL 0.4 MG/DL (0.1-1.0); BLOOD UREA NITROGEN 17 MG/DL (7-18); BUN/CREATININE RATIO 18.3 (5.4-32.0); CALCIUM 8.7 MG/DL (8.5-10.1); CHLORIDE 106 MMOL/L (99-107); CREATININE 0.93 MG/DL (0.60-1.10); GLUCOSE 106 MG/DL (70-104); POTASSIUM 4.4 MMOL/L (3.5-5.1); SODIUM 140 MMOL/L (135-145); TOTAL CARBON DIOXIDE 27.6 MMOL/L (24-32); TOTAL PROTEIN 7.5 G/DL (6.4-8.2); eGFR 81 ML/MIN
[2019-07-22 15:11] LABS: MAGNESIUM 1.8 MG/DL (1.5-2.4)
[2019-07-22] MEDS ORDERED: normal saline 1000ml 1,000 ML IV SCH (15:52)
[2019-07-22] MEDS ORDERED: magnesium 2GM in 50ml NS 50 ML IV PRN ×2 (15:55→23:30)
[2019-07-22] MEDS ORDERED: acetaminophen 325mg tablet PO PRN ×2 (15:55)
[2019-07-22] MEDS ORDERED: morphine 2 MG/ML inj. syringe IV PRN (15:55)
[2019-07-22] MEDS ORDERED: mag hydrox/Alum hydrox/simeth 30ml oral suspension PO PRN (15:55)
[2019-07-22] MEDS ORDERED: magnesium Cl slow-release 64mg tablet PO PRN (15:55)
[2019-07-22] MEDS ORDERED: HYDROcodone/acetaminophen 5mg/325mg tablet PO PRN (15:55)
[2019-07-22] MEDS ORDERED: LORazepam 2 mg/ml vial IV PRN (15:55)
[2019-07-22] MEDS ORDERED: potassium Cl 20 mEq SR tablet PO PRN ×2 (15:55)
[2019-07-22] MEDS ORDERED: ondansetron/PF 4mg/2ml inj IV PRN (15:55)
[2019-07-22] MEDS ORDERED: magnesium 4gm in 100ml NS 100 ML IV PRN (15:55)
[2019-07-22] MEDS ORDERED: potassium CL 10mEq/100ml bag 100 ML IV PRN ×2 (15:55)
[2019-07-22] MEDS ORDERED: iohexol 350MG/ML 100ml bottle IV ONE (16:07)
[2019-07-22 16:09] LABS: CLARITY,URINE CLEAR (Clear); COLOR,URINE YELLOW (Yellow); GLUCOSE, URINE NEGATIVE (Neg); KETONES,URINE NEGATIVE (Neg); LEUKOCYTE ESTERASE ,URINE NEGATIVE (Neg); NITRITES, URINE NEGATIVE (Neg); OCCULT BLOOD,URINE NEGATIVE (Neg); PH,URINE 5.5 (4.8-8.0); PROTEIN,URINE 100 mg/dl (Neg); UA COLLECTION TYPE URINAL; UROBILINOGEN,URINE 0.2 E.U/dL (0.2-1.0)
[2019-07-22 16:19] LABS: COARSE GRANULAR CAST 0-3 /LPF (NEGATIVE); WBC CASTS 0-3 /LPF (NEGATIVE)
[2019-07-22 16:21] LABS: URINE AMPHETAMINE SCREEN POSITIVE (Neg); URINE BARBITUATE SCREEN NEGATIVE (Neg); URINE BENZODIAZEPINES SCREEN POSITIVE (Neg); URINE CANNABINOID SCREEN NEGATIVE (Neg); URINE COCAINE SCREEN NEGATIVE (Neg); URINE METHADONE SCREEN NEGATIVE (Neg); URINE OPIATE SCREEN NEGATIVE (Neg); URINE PHENCYCLIDINE SCREEN NEGATIVE (Neg)
[2019-07-22 16:22] LABS: MUCUS STRANDS MODERATE /LPF (Neg); SQUAMOUS EPITHELIAL CELL,UR FEW /LPF (FEW)
[2019-07-22 16:24] LABS: BACTERIA,URINE FEW /HPF (Neg); RBC,URINE 0-2 /HPF (0-2); WBC,URINE 0-4 /HPF (0-4)
--- NOTE | 2019-07-22 17:08 | NUR ---
UNABLE TO COMPLETE MEDICATION RECONCILIATION: PATIENT CONTINUES TO BE TOO DROWSY. PATIENT STATES THAT HE IS STIIL TAKING FLOMAX 0.4 MG DAILY AND "MY XANAX". PATIENT TOX IS POSITIVE FOR AMPHETAMINE AND BENZOS. PATIENT ADMITS TO RECENT IVDA OF METH.
--- NOTE | 2019-07-22 17:44 | NUR ---
PHONE REPORT TO JENNIFFER HO. SHE IS AWARE THAT HIS MEDICATION RECONCILIATION IS NOT DONE.
--- NOTE | 2019-07-22 17:44 | NUR ---
Patient in room ED 5. I have received report from Afua ABAD and had the opportunity to ask questions and assume patient care.
[2019-07-22 18:00] VITALS: BP 96/75
--- NOTE | 2019-07-22 18:00 | NUR ---
Problems reprioritized. Patient report given, questions answered & plan of care reviewed with Cecilia ABAD.
--- NOTE | 2019-07-22 18:00 | NUR ---
Patient arrived on unit stable. Oriented to unit. Bed low/locked, side rails up x2, call light in reach.
--- NOTE | 2019-07-22 18:10 | NUR ---
Patient in room MED 313. I have received report from JENNIFFER Hatfield and had the opportunity to ask questions and assume patient care.
[2019-07-22] MEDS ORDERED: temazepam 15mg capsule PO PRN (21:00)
[2019-07-22 22:00] VITALS: BP 120/70
[2019-07-22] MEDS: docusate sod 100mg capsule PO SCH (22:51)
[2019-07-22] MEDS: furosemide 10 MG/1 ML 10ml inj IV SCH (22:51)
[2019-07-22] MEDS: heparin, porcine 5000 units/ml vial SQ SCH (22:51)
--- NOTE | 2019-07-22 23:13 | NUR ---
PAGER ID: [phone] MESSAGE: 313 pt Magdaleno [place] pt had 24 beat run of VTach, K 4.4, Mg 1.8, EF 20%. Complained of some chest pain. Stat protocol EKG in process. - [id number]
--- NOTE | 2019-07-22 23:20 | NUR ---
DR. REYES CALLED BACK IN REGARDS TO 24 BEAT RUN OF VTACH. ORDERS WERE RECEIVED. WILL CONTINUE TO MONITOR.
[2019-07-22] MEDS ORDERED: nitroGLYCERIN 0.4mg SUBLingual tab SL PRN (23:30)
[2019-07-23] VITALS (7 sets, daily range): BP systolic 98–131; BP diastolic 57–85
[2019-07-23 03:35] LABS: BASOPHILS # (AUTO) 0.1 X10'3 (0-0.2); BASOPHILS % (AUTO) 0.8 % (0-1); EOSINOPHILS # (AUTO) 0.2 X10'3 (0-0.9); HEMATOCRIT 44.6 % (42.0-52.0); HEMOGLOBIN 14.9 g/dl (14.0-17.9); LYMPHOCYTES # (AUTO) 2.1 X10'3 (1.1-4.8); LYMPHOCYTES % (AUTO) 19.4 % (21-51); MEAN CORPUSCULAR HEMOGLOBIN 29.4 PG (27.0-31.0); MEAN CORPUSCULAR HGB CONC 33.3 g/dL (33.0-36.5); MEAN CORPUSCULAR VOLUME 88.1 FL (78-98); MEAN PLATELET VOLUME 9.2 FL (7.4-10.4); MONOCYTES # (AUTO) 0.7 X10'3 (0-0.9); MONOCYTES % (AUTO) 6.6 % (2-12); NEUTROPHILS # (AUTO) 7.6 X10'3 (1.8-7.7); NEUTROPHILS % (AUTO) 71.2 % (42-75); PLATELET COUNT 235 X10'3 (140-440); RED BLOOD COUNT 5.06 X10'6 (4.70-6.10); RED CELL DISTRIBUTION WIDTH 14.9 % (11.5-14.5); WHITE BLOOD COUNT 10.7 X10'3 (4.5-11.0)
[2019-07-23 04:08] LABS: ALANINE AMINOTRANSFERASE 80 U/L (12-78); ALBUMIN 3.3 G/DL (3.4-5.0); ALBUMIN/GLOBULIN RATIO 0.7 (1.1-1.5); ALKALINE PHOSPHATASE 75 IU/L (46-116); ANION GAP 6 (8-16); ASPARTATE AMINO TRANSFERASE 49 U/L (10-37); BILIRUBIN,TOTAL 1.1 MG/DL (0.1-1.0); BLOOD UREA NITROGEN 17 MG/DL (7-18); BUN/CREATININE RATIO 17.3 (5.4-32.0); CALCIUM 9.3 MG/DL (8.5-10.1); CHLORIDE 102 MMOL/L (99-107); CREATININE 0.98 MG/DL (0.60-1.10); GLUCOSE 109 MG/DL (70-104); POTASSIUM 3.7 MMOL/L (3.5-5.1); SODIUM 138 MMOL/L (135-145); TOTAL CARBON DIOXIDE 30.2 MMOL/L (24-32); TOTAL PROTEIN 8.1 G/DL (6.4-8.2); eGFR 76 ML/MIN
[2019-07-23 04:14] LABS: MAGNESIUM 2.1 MG/DL (1.5-2.4)
--- NOTE | 2019-07-23 06:20 | NUR ---
Problems reprioritized. Patient report given, questions answered & plan of care reviewed with JENNIFFER ALEXANDER.
--- NOTE | 2019-07-23 08:00 | NUR ---
patient refusing orthostatic vitals.
[2019-07-23] MEDS: docusate sod 100mg capsule PO SCH ×2 (08:24→19:53)
[2019-07-23] MEDS: heparin, porcine 5000 units/ml vial SQ SCH ×2 (08:24→19:57)
[2019-07-23] MEDS: furosemide 10 MG/1 ML 10ml inj IV SCH (08:28)
[2019-07-23] MEDS: K and/or MAG REPLACEMENT MC SCH (08:29)
[2019-07-23] MEDS ORDERED: HYDROcodone/acetaminophen 10/325mg tab PO PRN (09:30)
[2019-07-23] MEDS ORDERED: morphine 2 MG/ML inj. syringe IV PRN (09:30)
[2019-07-23] MEDS: carVEDilol 3.125mg tablet PO SCH ×2 (10:44→19:53)
[2019-07-23] MEDS: lisinopril 5mg tablet PO SCH (10:44)
[2019-07-23] MEDS: levoFLOXACIN-Levaquin 500mg/D5 100 ML IV SCH (10:45)
--- NOTE | 2019-07-23 11:31 | NUR ---
PAGER ID: [phone] MESSAGE: [phone] - JOSEPH: GILBERT agrees with medical mgt. he is not going to write a note. ty charge nurse Mile ext [phone]
--- NOTE | 2019-07-23 17:11 | NUR ---
PAGER ID: [phone] MESSAGE: 313: JOSEPH- C/O severe back spasms, makes him jump out of bed. any new order for muscle relaxer? ty charge Mile [phone]
--- NOTE | 2019-07-23 17:12 | NUR ---
DR. CURRY CALLED BACK. NEW ORDER RECEIVED: FLEXERIL 5MG PO BID PRN FOR MUSCLE SPASMS
[2019-07-23] MEDS ORDERED: cyclobenzaprine 10mg tablet PO PRN (17:15)
--- NOTE | 2019-07-23 18:15 | NUR ---
Problems reprioritized. Patient report given, questions answered & plan of care reviewed with JENNIFFER Ny.
[2019-07-23] MEDS: lactobacillus rhamnosus 10,000 MMU CELLS/CAPSULE PO SCH (19:53)
[2019-07-24 02:00] VITALS: BP_SYST 100; BP_SYST 111; BP_DIAS 70; BP_DIAS 78
[2019-07-24 06:00] VITALS: BP 108/65
[2019-07-24 06:32] LABS: ALANINE AMINOTRANSFERASE 74 U/L (12-78); ALBUMIN 3.2 G/DL (3.4-5.0); ALBUMIN/GLOBULIN RATIO 0.6 (1.1-1.5); ALKALINE PHOSPHATASE 73 IU/L (46-116); ANION GAP 8 (8-16); ASPARTATE AMINO TRANSFERASE 46 U/L (10-37); BILIRUBIN,TOTAL 1.1 MG/DL (0.1-1.0); BLOOD UREA NITROGEN 19 MG/DL (7-18); BUN/CREATININE RATIO 17.3 (5.4-32.0); CALCIUM 9.8 MG/DL (8.5-10.1); CHLORIDE 101 MMOL/L (99-107); GLUCOSE 103 MG/DL (70-104); MAGNESIUM 1.9 MG/DL (1.5-2.4); POTASSIUM 3.8 MMOL/L (3.5-5.1); SODIUM 141 MMOL/L (135-145); TOTAL CARBON DIOXIDE 32.2 MMOL/L (24-32); TOTAL PROTEIN 8.3 G/DL (6.4-8.2); eGFR 67 ML/MIN
--- NOTE | 2019-07-24 06:32 | NUR ---
Problems reprioritized. Patient report given, questions answered & plan of care reviewed with Gael ABAD.
--- NOTE | 2019-07-24 06:34 | NUR ---
Patient in room MED 313. I have received report from JENNIFFER Ny and had the opportunity to ask questions and assume patient care.
[2019-07-24 06:46] LABS: BASOPHILS % (AUTO) 0.3 % (0-1); EOSINOPHILS # (AUTO) 0.2 X10'3 (0-0.9); EOSINOPHILS % (AUTO) 2.3 % (0-6); HEMATOCRIT 46.5 % (42.0-52.0); HEMOGLOBIN 15.6 g/dl (14.0-17.9); LYMPHOCYTES # (AUTO) 2.7 X10'3 (1.1-4.8); LYMPHOCYTES % (AUTO) 27.2 % (21-51); MEAN CORPUSCULAR HEMOGLOBIN 29.8 PG (27.0-31.0); MEAN CORPUSCULAR HGB CONC 33.6 g/dL (33.0-36.5); MEAN CORPUSCULAR VOLUME 88.6 FL (78-98); MEAN PLATELET VOLUME 9.6 FL (7.4-10.4); MONOCYTES # (AUTO) 0.9 X10'3 (0-0.9); MONOCYTES % (AUTO) 8.7 % (2-12); NEUTROPHILS # (AUTO) 6.2 X10'3 (1.8-7.7); NEUTROPHILS % (AUTO) 61.5 % (42-75); PLATELET COUNT 259 X10'3 (140-440); RED BLOOD COUNT 5.25 X10'6 (4.70-6.10); RED CELL DISTRIBUTION WIDTH 15.2 % (11.5-14.5); WHITE BLOOD COUNT 10.1 X10'3 (4.5-11.0)
[2019-07-24] MEDS: K and/or MAG REPLACEMENT MC SCH (07:09)
[2019-07-24] MEDS: lactobacillus rhamnosus 10,000 MMU CELLS/CAPSULE PO SCH ×2 (08:23→20:12)
[2019-07-24] MEDS: aspirin 81mg tab.chew PO SCH (08:23)
[2019-07-24] MEDS: furosemide 10 MG/1 ML 10ml inj IV SCH (08:23)
[2019-07-24] MEDS: lisinopril 5mg tablet PO SCH (08:23)
[2019-07-24] MEDS: heparin, porcine 5000 units/ml vial SQ SCH ×2 (08:23→20:16)
[2019-07-24] MEDS: docusate sod 100mg capsule PO SCH ×2 (08:23→20:12)
[2019-07-24] MEDS: carVEDilol 3.125mg tablet PO SCH ×2 (08:23→20:13)
[2019-07-24] MEDS: levoFLOXACIN-Levaquin 500mg/D5 100 ML IV SCH (08:36)
--- NOTE | 2019-07-24 09:44 | NUR ---
PAGER ID: [phone] MESSAGE: [phone] Eben Dolan Had a 5-beat run of [facility]. JENNIFFER Mayo Ext [phone] Addendum: 07/24/19 at 0946 by Gael Holliday RN Dr Camacho called back. No new orders were given.
[2019-07-24 10:00] VITALS: BP 98/57
[2019-07-24 14:00] VITALS: BP 95/68
--- NOTE | 2019-07-24 14:57 | NUR ---
PAGER ID: [phone] MESSAGE: RM [phone] Eebn Dolan: were you still planning on discharging the patient today? JENNIFFER Mayo Ext [phone]
[2019-07-24] MEDS: LORazepam 1 MG tablet PO PRN (17:13)
--- NOTE | 2019-07-24 18:22 | NUR ---
Problems reprioritized. Patient report given, questions answered & plan of care reviewed with JENNIFFER Ny.
[2019-07-24 22:00] VITALS: BP 101/71
[2019-07-25] MEDS: LORazepam 1 MG tablet PO PRN (01:18)
[2019-07-25 02:03] LABS: ALANINE AMINOTRANSFERASE 55 U/L (12-78); ALBUMIN/GLOBULIN RATIO 0.6 (1.1-1.5); ALKALINE PHOSPHATASE 68 IU/L (46-116); ANION GAP 8 (8-16); ASPARTATE AMINO TRANSFERASE 38 U/L (10-37); BILIRUBIN,TOTAL 0.7 MG/DL (0.1-1.0); BLOOD UREA NITROGEN 22 MG/DL (7-18); CALCIUM 8.7 MG/DL (8.5-10.1); CHLORIDE 103 MMOL/L (99-107); GLUCOSE 100 MG/DL (70-104); MAGNESIUM 1.7 MG/DL (1.5-2.4); POTASSIUM 3.9 MMOL/L (3.5-5.1); SODIUM 140 MMOL/L (135-145); TOTAL CARBON DIOXIDE 29.2 MMOL/L (24-32); TOTAL PROTEIN 7.7 G/DL (6.4-8.2); eGFR 74 ML/MIN
[2019-07-25 02:13] LABS: BASOPHILS # (AUTO) 0.1 X10'3 (0-0.2); BASOPHILS % (AUTO) 0.5 % (0-1); EOSINOPHILS # (AUTO) 0.2 X10'3 (0-0.9); EOSINOPHILS % (AUTO) 2.3 % (0-6); HEMATOCRIT 45.2 % (42.0-52.0); HEMOGLOBIN 15.1 g/dl (14.0-17.9); LYMPHOCYTES # (AUTO) 2.5 X10'3 (1.1-4.8); LYMPHOCYTES % (AUTO) 26.5 % (21-51); MEAN CORPUSCULAR HEMOGLOBIN 29.5 PG (27.0-31.0); MEAN CORPUSCULAR HGB CONC 33.4 g/dL (33.0-36.5); MEAN CORPUSCULAR VOLUME 88.1 FL (78-98); MEAN PLATELET VOLUME 9.1 FL (7.4-10.4); MONOCYTES # (AUTO) 0.9 X10'3 (0-0.9); MONOCYTES % (AUTO) 9.9 % (2-12); NEUTROPHILS # (AUTO) 5.8 X10'3 (1.8-7.7); NEUTROPHILS % (AUTO) 60.8 % (42-75); PLATELET COUNT 258 X10'3 (140-440); RED BLOOD COUNT 5.13 X10'6 (4.70-6.10); RED CELL DISTRIBUTION WIDTH 15.1 % (11.5-14.5); WHITE BLOOD COUNT 9.6 X10'3 (4.5-11.0)
[2019-07-25 06:00] VITALS: BP 126/70
--- NOTE | 2019-07-25 06:00 | NUR ---
Patient in room MED 313. I have received report from Denisse ABAD and had the opportunity to ask questions and assume patient care. Addendum: 07/25/19 at 0653 by Yanely Adam RN Problems reprioritized. Patient report given, questions answered & plan of care reviewed with Denisse ABAD.
--- NOTE | 2019-07-25 06:45 | NUR ---
Patient in room MED 313. I have received report from Yanely ABAD and had the opportunity to ask questions and assume patient care.
[2019-07-25] MEDS ORDERED: atropine 0.1mg/ml 10ml syringe ONE (08:00)
[2019-07-25] MEDS: K and/or MAG REPLACEMENT MC SCH (08:00)
[2019-07-25] MEDS: furosemide 10 MG/1 ML 10ml inj IV SCH (08:10)
[2019-07-25] MEDS: heparin, porcine 5000 units/ml vial SQ SCH (08:11)
[2019-07-25] MEDS: docusate sod 100mg capsule PO SCH (08:15)
[2019-07-25] MEDS: lisinopril 5mg tablet PO SCH (08:15)
[2019-07-25] MEDS: lactobacillus rhamnosus 10,000 MMU CELLS/CAPSULE PO SCH (08:15)
[2019-07-25] MEDS: aspirin 81mg tab.chew PO SCH (08:15)
[2019-07-25] MEDS: carVEDilol 3.125mg tablet PO SCH (08:15)
--- NOTE | 2019-07-25 08:29 | NUR ---
Paged Dr. Melgoza, "MANOLO [phone]- PLEASE call GOLDEN re: patient HR 150's, EKG showing A-flutter for Rm. 313 Eben Dolan on ACCE unit" Waiting education specialist back, Received call back with orders for cardizem drip at 5 mg/hr.
[2019-07-25] MEDS ORDERED: diltiazem-NS 100mg/100ml 100 ML IV SCH (08:35)
--- NOTE | 2019-07-25 09:43 | NUR ---
Cindi hospitalist, 'Denisse 8263-Rm: 313 MagdalenoEben converted to NSR-ST [id number] at 0855 prior to starting Cardizem drip."
[2019-07-25 11:00] VITALS: BP 110/69
[2019-07-25] MEDS ORDERED: levoFLOXACIN 500mg tablet PO SCH (11:00)
[2019-07-25] MEDS ORDERED: LISI-642 PO (13:24)
[2019-07-25] MEDS ORDERED: LACT1CAP26 PO (13:24)
[2019-07-25] MEDS ORDERED: CEFD300C3 PO (13:24)
[2019-07-25] MEDS ORDERED: SPIR25TA PO (13:25)
[2019-07-25] MEDS ORDERED: ATOR20TA66 PO (13:25)
[2019-07-25] MEDS ORDERED: FURO40TA4 PO (13:33)
--- NOTE | 2019-07-25 15:05 | NUR ---
Discussed discharge instructions and education with patient at this time, verbalized understanding, eager to go home. Called medications in [facility] pharmacy in [place], patient aware he is to pick them up. Also made an f/u appointment with Dr. Kang for at 2 pm, is aware that it is his responsibility to call to check in with office for earlier appointment time. welfare eligibility worker stopped by to discuss resources with him. IV removed, tele dc'd. Belongings sent with patient. Discharged home, escorted out per [facility] staff via ambulation per friend's private vehicle at this time without event.
--- NOTE | 2019-07-25 15:36 | NUR ---
Spoke with Dr. Kang's office re: getting a closer appointment date/time for patient since his medications has no refills after the 30 days. States they will review his chart and either get a closer appointment and/or make sure his medications are refilled that need to be.
== END 2019-07-25 15:05 | disposition home or self-care (01) | DRG 917 ==
LOC: ER 14:08 → ED HOLD 15:52 → MED 3N 19:01 → OBSVTOIN 07-25 09:00
PROVIDERS: ADMIT Internal Medicine; ATTEND Family Medicine
PROC: B32T1ZZ Computerized Tomography (CT Scan) of Left Pulmonary Artery using Low Osmolar Contrast (ICD-10-PCS; principal; 2019-07-22)
PROC: B3201ZZ Computerized Tomography (CT Scan) of Thoracic Aorta using Low Osmolar Contrast (ICD-10-PCS; 2019-07-22)
PROC: B32S1ZZ Computerized Tomography (CT Scan) of Right Pulmonary Artery using Low Osmolar Contrast (ICD-10-PCS; 2019-07-22)
DX: T43.621A Poisoning by amphetamines, accidental (unintentional), initial encounter (principal); G92 Toxic encephalopathy; I42.0 Dilated cardiomyopathy; I50.20 Unspecified systolic (congestive) heart failure; E78.00 Pure hypercholesterolemia, unspecified; E78.5 Hyperlipidemia, unspecified; F15.10 Other stimulant abuse, uncomplicated; I11.0 Hypertensive heart disease with heart failure; I25.10 Atherosclerotic heart disease of native coronary artery without angina pectoris; J44.9 Chronic obstructive pulmonary disease, unspecified; Z66 Do not resuscitate; F17.210 Nicotine dependence, cigarettes, uncomplicated; R00.1 Bradycardia, unspecified; R55 Syncope and collapse; Z91.19 Patient's noncompliance with other medical treatment and regimen; Y92.89 Other specified places as the place of occurrence of the external cause; Z87.01 Personal history of pneumonia (recurrent); Z98.61 Coronary angioplasty status; Z71.6 Tobacco abuse counseling; Z71.51 Drug abuse counseling and surveillance of drug abuser
CPT/HCPCS: 36415; 71045; 71275; 80053; 80305; 81001; 83605; 83735; 83880; 84484; 85025; 87040; 87081; 93005; 93306; 96360; 96365; 96366; 96367; 96375; 97116; 97161; 97530; 99285; G0378; J0461; J1644; J1940; J1956; J3475; J3490; Q9967

== ENCOUNTER 2019-08-17 04:59 | Observation (INO) | payer MEDICARE, OTHER ==
[~2019-08-17] VITALS: Ht 180.3 cm; Wt 90.9 kg
[2019-08-17] VITALS (12 sets, daily range): BP systolic 91–119; BP diastolic 56–80
[~2019-08-17 04:59] MED LIST changes: +ATOR20TA66 PO; +CEFD300C3 PO; +LACT1CAP26 PO; +LISI-642 PO; -POTA20TA19 PO; +SPIR25TA PO
[2019-08-17] MEDS ORDERED: nitroGLYCERIN 0.4mg SUBLingual tab SL PRN ×2 (05:40→10:30)
[2019-08-17] MEDS ORDERED: aspirin 81mg tab.chew PO ONE (05:40)
[2019-08-17 05:54] LABS: BASOPHILS # (AUTO) 0.1 X10'3 (0-0.2); BASOPHILS % (AUTO) 0.5 % (0-1); EOSINOPHILS # (AUTO) 0.2 X10'3 (0-0.9); EOSINOPHILS % (AUTO) 2.2 % (0-6); HEMOGLOBIN 14.2 g/dl (14.0-17.9); LYMPHOCYTES # (AUTO) 2.7 X10'3 (1.1-4.8); LYMPHOCYTES % (AUTO) 24.8 % (21-51); MEAN CORPUSCULAR HEMOGLOBIN 29.6 PG (27.0-31.0); MEAN CORPUSCULAR VOLUME 89.6 FL (78-98); MEAN PLATELET VOLUME 9.6 FL (7.4-10.4); MONOCYTES # (AUTO) 0.8 X10'3 (0-0.9); MONOCYTES % (AUTO) 7.6 % (2-12); NEUTROPHILS # (AUTO) 7.1 X10'3 (1.8-7.7); NEUTROPHILS % (AUTO) 64.9 % (42-75); PLATELET COUNT 156 X10'3 (140-440); RED CELL DISTRIBUTION WIDTH 15.2 % (11.5-14.5)
[2019-08-17 06:05] LABS: ALANINE AMINOTRANSFERASE 80 U/L (12-78); ALBUMIN 3.4 G/DL (3.4-5.0); ALBUMIN/GLOBULIN RATIO 0.9 (1.1-1.5); ANION GAP 8 (8-16); ASPARTATE AMINO TRANSFERASE 37 U/L (10-37); BILIRUBIN,TOTAL 0.9 MG/DL (0.1-1.0); BLOOD UREA NITROGEN 18 MG/DL (7-18); BUN/CREATININE RATIO 16.1 (5.4-32.0); CALCIUM 8.9 MG/DL (8.5-10.1); CHLORIDE 103 MMOL/L (99-107); CREATININE 1.12 MG/DL (0.60-1.10); GLUCOSE 104 MG/DL (70-104); POTASSIUM 4.1 MMOL/L (3.5-5.1); SODIUM 139 MMOL/L (135-145); TOTAL CARBON DIOXIDE 28.1 MMOL/L (24-32); TOTAL PROTEIN 7.2 G/DL (6.4-8.2); eGFR 65 ML/MIN
[2019-08-17 06:12] LABS: MAGNESIUM 1.6 MG/DL (1.5-2.4)
[2019-08-17 06:27] LABS: ALKALINE PHOSPHATASE 58 IU/L (46-116)
[2019-08-17 06:36] LABS: URINE AMPHETAMINE SCREEN NEGATIVE (Neg); URINE BARBITUATE SCREEN NEGATIVE (Neg); URINE BENZODIAZEPINES SCREEN NEGATIVE (Neg); URINE CANNABINOID SCREEN NEGATIVE (Neg); URINE COCAINE SCREEN NEGATIVE (Neg); URINE METHADONE SCREEN NEGATIVE (Neg); URINE OPIATE SCREEN NEGATIVE (Neg); URINE PHENCYCLIDINE SCREEN NEGATIVE (Neg)
--- NOTE | 2019-08-17 07:38 | NUR ---
WAITING HOSPITALIST FOR ADMIT
[2019-08-17] MEDS ORDERED: potassium Cl 20 mEq SR tablet PO PRN ×3 (07:40→16:30)
[2019-08-17] MEDS ORDERED: docusate sod 100mg capsule PO PRN (07:40)
[2019-08-17] MEDS ORDERED: mag hydrox/Alum hydrox/simeth 30ml oral suspension PO PRN (07:40)
[2019-08-17] MEDS ORDERED: ondansetron/PF 4mg/2ml inj IV PRN (07:40)
[2019-08-17] MEDS ORDERED: magnesium 4gm in 100ml NS 100 ML IV PRN ×2 (07:40→16:30)
[2019-08-17] MEDS ORDERED: potassium CL 10mEq/100ml bag 100 ML IV PRN ×2 (07:40)
[2019-08-17] MEDS ORDERED: acetaminophen 325mg tablet PO PRN ×2 (07:40)
[2019-08-17] MEDS ORDERED: magnesium Cl slow-release 64mg tablet PO PRN (07:40)
[2019-08-17] MEDS ORDERED: magnesium 2GM in 50ml NS 50 ML IV PRN ×2 (07:40→16:30)
[2019-08-17] MEDS ORDERED: ipratropium/albuterol 3ml nebule NEB PRN (07:40)
[2019-08-17] MEDS ORDERED: furosemide 10 MG/1 ML 10ml inj IV SCH (08:00)
[2019-08-17] MEDS ORDERED: enoxaparin 40mg/0.4ml syringe SQ SCH (08:00)
[2019-08-17] MEDS ORDERED: K and/or MAG REPLACEMENT MC SCH (08:00)
[2019-08-17] MEDS ORDERED: nicotine 21mg patch - 24 hr TD SCH (08:00)
[2019-08-17 08:36] LABS: ETHANOL < 0.010 GM/DL (0.0-0.010)
--- NOTE | 2019-08-17 08:37 | NUR ---
Bed for patient at 08:28 bed 314
[2019-08-17] MEDS: LORazepam 0.5 MG tablet PO PRN ×2 (08:46→20:02)
--- NOTE | 2019-08-17 09:40 | NUR ---
Received hand off report from charge nurse Stephanie.
--- NOTE | 2019-08-17 10:00 | NUR ---
Pt arrived on unit from ED via gurney, able to ambulate, no sign of distress. V/S WIN.
[2019-08-17] MEDS ORDERED: regadenoson 0.4mg/5ml syringe IV ONE (10:30)
[2019-08-17] MEDS ORDERED: metoprolol tartrate 1mg/ml inj IV PRN (10:30)
[2019-08-17] MEDS ORDERED: aminophylline 250mg/10ml inj. IV PRN (10:30)
--- NOTE | 2019-08-17 13:56 | NUR ---
Patient transported to [facility] for stress test. No s/s of distress. Patient questions and concerns addressed.
--- NOTE | 2019-08-17 16:20 | NUR ---
PAGER ID: [phone] MESSAGE: Patient Eben Dolan Rm#314 has been having frequent PVC's. K+ is 4.1 and MAG is 1.6. Would you like the cardiac replacement protocol ordered?
[2019-08-17] MEDS ORDERED: potassium Cl 20mEq/100mL bag 100 ML IV PRN (16:30)
--- NOTE | 2019-08-17 18:00 | NUR ---
Problems reprioritized. Patient report given, questions answered & plan of care reviewed with JENNIFFER Sigala.
--- NOTE | 2019-08-17 18:55 | NUR ---
Patient in room MED 314. I have received report from Mishel ABAD and had the opportunity to ask questions and assume patient care. fall precaution implemented, bedside report completed.
[2019-08-17] MEDS: enoxaparin 100mg/ml syringe SUBCUT SCH (20:03)
[2019-08-18] MEDS ORDERED: ondansetron/PF 4mg/2ml inj IV PRN (01:50)
[2019-08-18] MEDS ORDERED: metoclopramide 5 mg/ml inj IV PRN (01:50)
[2019-08-18] MEDS: LORazepam 0.5 MG tablet PO PRN ×2 (02:07→10:55)
[2019-08-18 02:30] VITALS: BP 108/70
[2019-08-18 03:23] LABS: BASOPHILS % (AUTO) 0.2 % (0-1); EOSINOPHILS # (AUTO) 0.1 X10'3 (0-0.9); EOSINOPHILS % (AUTO) 1.1 % (0-6); HEMATOCRIT 44.5 % (42.0-52.0); HEMOGLOBIN 14.9 g/dl (14.0-17.9); LYMPHOCYTES % (AUTO) 22.6 % (21-51); MEAN CORPUSCULAR HEMOGLOBIN 29.4 PG (27.0-31.0); MEAN CORPUSCULAR HGB CONC 33.5 g/dL (33.0-36.5); MEAN CORPUSCULAR VOLUME 87.6 FL (78-98); MONOCYTES # (AUTO) 1.1 X10'3 (0-0.9); MONOCYTES % (AUTO) 8.5 % (2-12); NEUTROPHILS # (AUTO) 8.9 X10'3 (1.8-7.7); NEUTROPHILS % (AUTO) 67.6 % (42-75); PLATELET COUNT 162 X10'3 (140-440); RED BLOOD COUNT 5.08 X10'6 (4.70-6.10); RED CELL DISTRIBUTION WIDTH 15.6 % (11.5-14.5); WHITE BLOOD COUNT 13.2 X10'3 (4.5-11.0)
[2019-08-18 03:38] LABS: ALANINE AMINOTRANSFERASE 76 U/L (12-78); ALBUMIN 3.6 G/DL (3.4-5.0); ALBUMIN/GLOBULIN RATIO 0.9 (1.1-1.5); ALKALINE PHOSPHATASE 69 IU/L (46-116); ANION GAP 6 (8-16); ASPARTATE AMINO TRANSFERASE 37 U/L (10-37); BILIRUBIN,TOTAL 1.6 MG/DL (0.1-1.0); BLOOD UREA NITROGEN 18 MG/DL (7-18); BUN/CREATININE RATIO 15.4 (5.4-32.0); CALCIUM 8.9 MG/DL (8.5-10.1); CHLORIDE 100 MMOL/L (99-107); CHOL/HDL RATIO 3.9 (0.00-4.99); CHOLESTEROL 165 MG/DL (0-200); CREATININE 1.17 MG/DL (0.60-1.10); GLUCOSE 108 MG/DL (70-104); HDL CHOLESTEROL 42 MG/DL (35-60); LDL CHOLESTEROL 122 MG/DL (50-100); MAGNESIUM 2.6 MG/DL (1.5-2.4); POTASSIUM 4.5 MMOL/L (3.5-5.1); SODIUM 135 MMOL/L (135-145); TOTAL CARBON DIOXIDE 28.9 MMOL/L (24-32); TOTAL PROTEIN 7.8 G/DL (6.4-8.2); TRIGLYCERIDES 95 MG/DL (20-135); eGFR 62 ML/MIN
--- NOTE | 2019-08-18 04:25 | NUR ---
ordnance engineering technician notified patient is going on tele #25 to bathroom.
--- NOTE | 2019-08-18 06:00 | NUR ---
Patient in room MED 314. I have received report from Shakira ABAD and had the opportunity to ask questions and assume patient care.
--- NOTE | 2019-08-18 06:38 | NUR ---
Problems reprioritized. Patient report given, anoop ABAD questions answered & plan of care reviewed with .
[2019-08-18 07:00] VITALS: BP 123/62
[2019-08-18] MEDS ORDERED: furosemide 40mg/4ml inj IV SCH (08:00)
[2019-08-18] MEDS: enoxaparin 100mg/ml syringe SUBCUT SCH (09:39)
--- NOTE | 2019-08-18 10:14 | NUR ---
Malnutrition consult: Pt admit w/ chest pains r/o ACS. Hx heart failure EF 20% and meth abuse; last use 1 month ago per MD note. Pt has no significant weakness, edema/wounds, and only wt hx all pt stated wts. Current BMI 28. Pt PO 50% avg first meal this admit. CT shows 3.5cm infrarenal AAA per MD note. At this time pt does not meet minimum malnutrition criteria. Will continue to monitor for additional criteria this admit. Addendum: 08/18/19 at [address] Amended: Links added.
[2019-08-18 11:00] VITALS: BP 115/52
[2019-08-18] MEDS ORDERED: ASPI-611 PO (12:41)
[2019-08-18] MEDS ORDERED: LISI-604 PO (12:43)
[2019-08-18] MEDS ORDERED: CARV6.253 PO (12:43)
[2019-08-18] MEDS ORDERED: FURO40TA4 PO (12:43)
[2019-08-18] MEDS ORDERED: ATOR20TA66 PO (12:43)
[2019-08-18] MEDS ORDERED: SPIR25TA5 PO (12:43)
--- NOTE | 2019-08-18 14:50 | NUR ---
PAGED DR. BURGER ABOUT CARDIO CONSULT Re; Eben Dolan in 314. I contacted Dr. Boyer's office who said he did speak with nursing about the patient, that he has nothing more to add. Pt has an appt with Dr. Kang's office on 09/19. Thank you, Gabriela CANO [phone]
--- NOTE | 2019-08-18 15:23 | NUR ---
PATIENT HAS BEEN REFUSING TELE MONITOR FOR MOST OF DAY DR. BURGER AWARE ATTEMPTED TO REINFORCE EDUCATION AND IMPORTANCE BUT PATIENT DOESN'T WANT TO HAVE IT ON.
--- NOTE | 2019-08-18 16:00 | NUR ---
PATIENT ASKING ABOUT GOING HOME INFORMED PT OF PREVIOUSLY MADE FOLLOW UP APPOINTMENT WITH DR. DORMAN ON 09/19/19 @ 2PM. PHONE NUMBER TO OFFICE PROVIDED TO PATIENT ON PAPER. WAITING FOR WORD FROM DR. BURGER ABOUT DISCHARGE.
--- NOTE | 2019-08-18 16:00 | NUR ---
Patient came out to nurses station fully dressed stating that he was not going to "stay here anymore I need a Taxi from you guys to leave." Calmed patient and asked him to please go back to his room to take his IV out and told him we have a form for him to sign that he was leaving AMA. He agreed and nurse went to his room with him. IV was removed catheter intact and no s/s of complications. Nurse informed him that hospital would not pay for his Taxi because he was leaving AMA. He started cussing and laid back down on his bed. Nurse brought in AMA form to sign and he stated "just give me some time." Dr Araujo was paged and when he called nurse told him the situation just to let him know. The AMA form was brought to patient and he was laying on the bed continuing to curse because his room mates would not shrimp picker their phones to talk to him or answer his messages all day. He stated "I am going to hitch hike". He finally agreed to sign the AMA when nursing staff told him he could not stay in the room yelling and cursing he. AMA form was signed. Security was called to inform pt being irate. Nurse followed pt down to lobby to make sure he was leaving patient care areas. He walked out of the hospital.
--- NOTE | 2019-08-18 16:20 | NUR ---
PAGED DR. BURGER, PATIENT AGITATED "RE: VERO RUIZ IN 314. PATIENT IS GETTING AGITATED WITH STAFF, SAYS HE IS WANTING TO LEAVE, IS BEING DEMANDING. CALL WHEN ABLE. THANK YOU, EMILIE CANO [phone]"
== END 2019-08-18 16:33 | disposition left against medical advice (07) ==
LOC: ER 05:00 → ED HOLD 07:39 → EDBEDREQ 08:29 → MED 3N 10:04
PROVIDERS: ADMIT Family Medicine; ATTEND Family Medicine
DX: R07.89 Other chest pain (principal); I25.10 Atherosclerotic heart disease of native coronary artery without angina pectoris; I11.0 Hypertensive heart disease with heart failure; I50.22 Chronic systolic (congestive) heart failure; F41.9 Anxiety disorder, unspecified; F32.9 Major depressive disorder, single episode, unspecified; E78.00 Pure hypercholesterolemia, unspecified; F41.0 Panic disorder [episodic paroxysmal anxiety]; I08.1 Rheumatic disorders of both mitral and tricuspid valves; F15.90 Other stimulant use, unspecified, uncomplicated; J44.9 Chronic obstructive pulmonary disease, unspecified; Z87.891 Personal history of nicotine dependence; I42.0 Dilated cardiomyopathy; Z98.61 Coronary angioplasty status; Z59.0 Homelessness; Z95.0 Presence of cardiac pacemaker; Z79.899 Other long term (current) drug therapy
CPT/HCPCS: 36415; 71045; 74176; 78452; 80053; 80061; 80305; 80320; 83735; 83880; 84484; 85025; 87081; 93005; 93017; 94760; 96365; 96366; 96372; 96375; 96376; 99284; A9500; G0378; J0280; J1940; J2405; J2785; J3475; J1650

== ENCOUNTER 2020-03-16 13:05 | Emergency (ER) | payer OTHER, MEDICARE ==
[~2020-03-16] VITALS: Ht 180.3 cm; Wt 81.8 kg
[~2020-03-16 13:05] MED LIST changes: -ASPI-1071 PO; +ASPI-611 PO; -CEFD300C3 PO; -LACT1CAP26 PO; +LISI-604 PO; -LISI-642 PO; -SPIR25TA PO; +SPIR25TA5 PO
[2020-03-16 14:15] LABS: BASOPHILS % (AUTO) 0.3 % (0-1); EOSINOPHILS # (AUTO) 0.1 X10'3 (0-0.9); EOSINOPHILS % (AUTO) 1.4 % (0-6); HEMATOCRIT 51.1 % (42.0-52.0); HEMOGLOBIN 16.9 g/dl (14.0-17.9); LYMPHOCYTES # (AUTO) 1.9 X10'3 (1.1-4.8); LYMPHOCYTES % (AUTO) 19.2 % (21-51); MEAN CORPUSCULAR HEMOGLOBIN 29.6 PG (27.0-31.0); MEAN CORPUSCULAR HGB CONC 33.1 g/dL (33.0-36.5); MEAN CORPUSCULAR VOLUME 89.5 FL (78-98); MEAN PLATELET VOLUME 8.8 FL (7.4-10.4); MONOCYTES # (AUTO) 0.9 X10'3 (0-0.9); MONOCYTES % (AUTO) 8.6 % (2-12); NEUTROPHILS # (AUTO) 7.1 X10'3 (1.8-7.7); NEUTROPHILS % (AUTO) 70.5 % (42-75); PLATELET COUNT 158 X10'3 (140-440); RED BLOOD COUNT 5.71 X10'6 (4.70-6.10); RED CELL DISTRIBUTION WIDTH 14.6 % (11.5-14.5); WHITE BLOOD COUNT 10.1 X10'3 (4.5-11.0)
[2020-03-16 14:30] LABS: ALANINE AMINOTRANSFERASE 68 U/L (12-78); ALBUMIN 3.5 G/DL (3.4-5.0); ALBUMIN/GLOBULIN RATIO 0.8 (1.1-1.5); ALKALINE PHOSPHATASE 79 IU/L (46-116); ANION GAP 6 (8-16); ASPARTATE AMINO TRANSFERASE 40 U/L (10-37); BILIRUBIN,TOTAL 0.6 MG/DL (0.1-1.0); BLOOD UREA NITROGEN 19 MG/DL (7-18); BUN/CREATININE RATIO 17.1 (5.4-32.0); CALCIUM 8.9 MG/DL (8.5-10.1); CHLORIDE 106 MMOL/L (99-107); CREATININE 1.11 MG/DL (0.60-1.10); GLUCOSE 99 MG/DL (70-104); POTASSIUM 4.1 MMOL/L (3.5-5.1); SODIUM 137 MMOL/L (135-145); TOTAL CARBON DIOXIDE 24.8 MMOL/L (24-32); TOTAL PROTEIN 7.9 G/DL (6.4-8.2); eGFR 66 ML/MIN
[2020-03-16 15:39] VITALS: BP 116/77
[2020-03-16] MEDS ORDERED: ALPR0.5T8 PO (15:43)
[2020-03-16] MEDS ORDERED: ALBU8.5H8 IH (15:43)
[2020-03-16] MEDS ORDERED: BUDE10.2 INH (15:43)
== END 2020-03-16 18:26 | disposition home or self-care (01) ==
LOC: ER 13:05
DX: R00.1 Bradycardia, unspecified (principal); R19.7 Diarrhea, unspecified; R42 Dizziness and giddiness; R53.1 Weakness; I25.10 Atherosclerotic heart disease of native coronary artery without angina pectoris; I11.0 Hypertensive heart disease with heart failure; I50.9 Heart failure, unspecified; E78.00 Pure hypercholesterolemia, unspecified; J44.9 Chronic obstructive pulmonary disease, unspecified; F15.90 Other stimulant use, unspecified, uncomplicated; Z87.01 Personal history of pneumonia (recurrent); Z98.890 Other specified postprocedural states; Z59.0 Homelessness; Z79.82 Long term (current) use of aspirin; Z79.899 Other long term (current) drug therapy
CPT/HCPCS: 36415; 71045; 80053; 83735; 83880; 84484; 85025; 87081; 93005; 99285

== ENCOUNTER 2024-08-25 14:40 | Emergency (ER) | payer OTHER, MEDICARE ==
[~2024-08-25] VITALS: Ht 180.3 cm; Wt 104.5 kg
[~2024-08-25 14:40] MED LIST changes: +ALBU8.5H17 IH; +ALPR0.5T8 PO; +AMIO200T27 PO; +BUDE10.2 INH; +FURO-149 PO; -FURO40TA4 PO; +LAN0.125T PO; -LISI-604 PO; +LISI5TAB22 PO; -SPIR25TA5 PO
[2024-08-25 17:37] LABS: BASOPHILS # (AUTO) 0.1 X10'3 (0-0.2); BASOPHILS % (AUTO) 0.7 % (0-1); EOSINOPHILS # (AUTO) 0.3 X10'3 (0-0.9); EOSINOPHILS % (AUTO) 2.6 % (0-6); HEMOGLOBIN 15.5 g/dl (14.0-17.9); LYMPHOCYTES # (AUTO) 2.1 X10'3 (1.1-4.8); LYMPHOCYTES % (AUTO) 19.6 % (21-51); MEAN CORPUSCULAR HEMOGLOBIN 29.8 PG (27.0-31.0); MEAN CORPUSCULAR HGB CONC 33.7 g/dL (33.0-36.5); MEAN CORPUSCULAR VOLUME 88.4 FL (78-98); MEAN PLATELET VOLUME 8.7 FL (7.4-10.4); MONOCYTES # (AUTO) 0.8 X10'3 (0-0.9); NEUTROPHILS # (AUTO) 7.5 X10'3 (1.8-7.7); NEUTROPHILS % (AUTO) 70.1 % (42-75); PLATELET COUNT 231 X10'3 (140-440); RED CELL DISTRIBUTION WIDTH 15.7 % (11.5-14.5); WHITE BLOOD COUNT 10.7 X10'3 (4.5-11.0)
[2024-08-25 17:49] LABS: ALANINE AMINOTRANSFERASE 38 U/L (12-78); ALBUMIN 3.6 G/DL (3.4-5.0); ALBUMIN/GLOBULIN RATIO 0.8 (1.1-1.5); ALKALINE PHOSPHATASE 84 IU/L (46-116); ANION GAP 8 (8-16); ASPARTATE AMINO TRANSFERASE 32 U/L (10-37); BILIRUBIN,TOTAL 0.6 MG/DL (0.1-1.0); BLOOD UREA NITROGEN 17 MG/DL (7-18); BUN/CREATININE RATIO 14.3 (10.0-20.0); CALCIUM 9.2 MG/DL (8.5-10.1); CHLORIDE 99 MMOL/L (99-107); CREATININE 1.19 MG/DL (0.60-1.10); GLUCOSE 219 MG/DL (70-104); POTASSIUM 4.4 MMOL/L (3.5-5.1); SODIUM 136 MMOL/L (135-145); TOTAL CARBON DIOXIDE 29.2 MMOL/L (24-32); TOTAL PROTEIN 8.3 G/DL (6.4-8.2); eCRCL 59 ML/MIN; eGFR 60 ML/MIN
[2024-08-25 17:57] LABS: PRO BRAIN NATRIURETIC PEPTIDE 195 PG/ML (0-125)
[2024-08-25 18:26] VITALS: BP 147/79
[2024-08-25] MEDS: albuterol 2.5 MG/3 ML nebule NEB ONE (18:55)
[2024-08-25 18:57] VITALS: PULSE 72; RESP 18; O2SAT 95
[2024-08-25 19:05] VITALS: PULSE 66; RESP 18; O2SAT 95
== END 2024-08-25 20:20 | disposition left against medical advice (07) ==
LOC: ER 14:41
DX: R06.02 Shortness of breath (principal); R53.83 Other fatigue; I25.10 Atherosclerotic heart disease of native coronary artery without angina pectoris; I11.0 Hypertensive heart disease with heart failure; I50.9 Heart failure, unspecified; E78.00 Pure hypercholesterolemia, unspecified; J44.9 Chronic obstructive pulmonary disease, unspecified; F15.90 Other stimulant use, unspecified, uncomplicated; Z59.00 Homelessness unspecified; Z79.1 Long term (current) use of non-steroidal anti-inflammatories (NSAID); Z79.899 Other long term (current) drug therapy
CPT/HCPCS: 36415; 71045; 80053; 83880; 84484; 85025; 93005; 94640; 94760; 99285